=== PATIENT | male | born 1945 | race Caucasian/White ===

== ENCOUNTER → 2016-07-02 | Outpatient (CLI) | payer MEDICARE, BC ==
[~2016-07-02] MED LIST: ACTIFED PO; ANTIHISTAMINE25 M1 PO; ASPIRIN; ASPIRIN PO; BACLOFEN10 MG PO; CRESTOR PO; PERCOCET PO; PHENERGAN25 M1 PO; SILVADENE TOP; TOPROL XL PO
[2016-07-02 10:19] LABS: INR 2.7; PROTHROMBIN TIME (PATIENT) 30.4 SECONDS (9.5-12.4)
== END | disposition home or self-care (01) ==
LOC: SLAB 09:52
PROVIDERS: Surgery Vascular Surgery
DX: I71.01 Dissection of thoracic aorta (principal)
CPT/HCPCS: 36415; 85610

== ENCOUNTER → 2016-07-09 | Outpatient (CLI) | payer MEDICARE, BC ==
[2016-07-09 10:49] LABS: INR 3.1
== END | disposition home or self-care (01) ==
LOC: SLAB 10:25
PROVIDERS: Surgery Vascular Surgery
DX: I71.01 Dissection of thoracic aorta (principal)
CPT/HCPCS: 36415; 85610

== ENCOUNTER → 2016-07-16 | Outpatient (CLI) | payer MEDICARE, BC ==
[2016-07-16 09:49] LABS: INR 1.9; PROTHROMBIN TIME (PATIENT) 22.1 SECONDS (9.5-12.4)
== END | disposition home or self-care (01) ==
LOC: SLAB 09:14
PROVIDERS: Surgery Vascular Surgery
DX: I71.01 Dissection of thoracic aorta (principal)
CPT/HCPCS: 36415; 85610

== ENCOUNTER → 2016-07-30 | Outpatient (CLI) | payer MEDICARE, BC ==
[2016-07-30 09:58] LABS: INR 3.3; PROTHROMBIN TIME (PATIENT) 37.7 SECONDS (9.5-12.4)
== END | disposition home or self-care (01) ==
LOC: SLAB 09:30
PROVIDERS: Surgery Vascular Surgery
DX: I71.01 Dissection of thoracic aorta (principal)
CPT/HCPCS: 85610

== ENCOUNTER → 2016-08-06 | Outpatient (CLI) | payer MEDICARE, BC ==
[2016-08-06 11:20] LABS: INR 2.4; PROTHROMBIN TIME (PATIENT) 27.9 SECONDS (9.5-12.4)
== END | disposition home or self-care (01) ==
LOC: SLABONLY 10:43
PROVIDERS: Surgery Vascular Surgery
DX: I71.01 Dissection of thoracic aorta (principal)
CPT/HCPCS: 36415; 85610

== ENCOUNTER → 2016-08-20 | Outpatient (CLI) | payer MEDICARE, BC ==
[2016-08-20 10:52] LABS: INR 1.9; PROTHROMBIN TIME (PATIENT) 21.4 SECONDS (9.5-12.4)
== END | disposition home or self-care (01) ==
LOC: SLAB 10:28
PROVIDERS: Surgery Vascular Surgery
DX: I71.01 Dissection of thoracic aorta (principal)
CPT/HCPCS: 36415; 85610